=== PATIENT | female | born 1975 | race American Indian/Alaskan Native ===

== ENCOUNTER 2019-12-23 08:59 | Outpatient (CLI) | payer OTHER ==
--- NOTE | 2019-12-24 09:08 | Magnetic Resonance Report ---
Bilateral breast MR without and with contrast. History: Screening breast MRI, patient with strong family history of breast cancer. Comparison: 12/02/2019, 11/27/2018. Technique: Multiplanar multisequence MR images of the breast were obtained before and after the intra venous administration of intravenous contrast. Post processing analysis and review was performed on a separate computer workstation. Findings: Breast composition is heterogenously dense. There is mild background parenchymal enhancement bilatera lly. No enhancing mass, dominant focus, or other abnormal enhancement is identified within either breast. Postsurgical distortion within the right upper outer breast appears stable when compared to prior danika mograms. No abnormal axillary or internal mammary lymph nodes.. Impression: No evidence of breast malignancy. BIRADS 1: Negative. A normal MRI does not exclude the presence of some forms of breast malignancy as literature reports s uggest that some forms of ductal carcinoma in situ or lobular carcinoma, particularly, may not be det ected on MRI. The sensitivity and specificity of MRI for cancers under 5 mm may be reduced. MRI does not replace the recommendation for annual conventional mammographic evaluation and should be used as an adjunct to mammography and physical examination as necessary. Signer Name: Randy Payan MD Signed: 12/24/2019 9:04 AM Workstation Name: [id number]
== END 2019-12-23 09:00 | disposition home or self-care (01) ==
LOC: SPVIMAG 08:59
PROVIDERS: ATTEND Surgery
DX: Z12.31 Encounter for screening mammogram for malignant neoplasm of breast (principal); Z80.3 Family history of malignant neoplasm of breast
CPT/HCPCS: A9577; C8908; 77049

== ENCOUNTER 2020-06-09 07:50 | Outpatient (CLI) | payer OTHER ==
--- NOTE | 2020-06-09 08:31 | Ultrasound Report ---
US soft tissue head and neck INDICATION: Palpable area in the right supraclavicular region. TECHNIQUE: Soft tissue ultrasound in the region of palpable abnormality. COMPARISON: None available. FINDINGS: In the region of palpable abnormality, there is a normal-sized lymph node with normal fatty hilum wit h short axis measurement of 0.5 cm. This is most likely a reactive node. Recommend clinical follow-up to resolution. Signer Name: Jhon Guevara MD Signed: 06/09/2020 8:26 AM Workstation Name: [id number]
== END 2020-06-09 07:51 | disposition home or self-care (01) ==
LOC: SPVWC 07:50
PROVIDERS: ATTEND Surgery
DX: Z03.89 Encounter for observation for other suspected diseases and conditions ruled out (principal); Z80.3 Family history of malignant neoplasm of breast
CPT/HCPCS: 76536

== ENCOUNTER 2020-09-28 08:55 | Outpatient (CLI) | payer OTHER ==
--- NOTE | 2020-09-28 13:45 | Ultrasound Report ---
US Soft Tissue Head and Neck INDICATION / CLINICAL INFORMATION: LOCALIZED SWELLING,MASS LUMP OF NECK. COMPARISON: Soft tissue ultrasound 06/09/2020. FINDINGS: The previously visualized reactive lymph node is not identified on today's exam. No significant abnor mality within the right neck area of concern. IMPRESSION: 1. Previously visualized lymph node is no longer identified. No significant abnormality. Scribed by: Mariaa Elliott RDMS, RVT Scribed: 09/28/2020 10:03 AM I have reviewed the images, agree with this report, and edited this report as needed. Signer Name: Cristino López MD Signed: 09/28/2020 1:41 PM Workstation Name: [id number]
== END 2020-09-28 08:56 | disposition home or self-care (01) ==
LOC: US 08:55
PROVIDERS: ATTEND Surgery
DX: R22.1 Localized swelling, mass and lump, neck (principal)
CPT/HCPCS: 76536

== ENCOUNTER 2020-12-02 08:12 | Outpatient (CLI) | payer OTHER ==
--- NOTE | 2020-12-02 10:22 | Mammography Report ---
DIGITAL SCREENING MAMMOGRAM WITH CAD, 12/02/2020 CLINICAL INFORMATION / INDICATION: Routine screening mammography. SCREENING MAMMO Z12.31 TECHNIQUE: Digital bilateral 2D mammography was obtained in the craniocaudal and mediolateral obliqu e projections. This examination was interpreted with the benefit of Computer-Aided Detection analysis . COMPARISON: 11/17/2016 through 12/02/2019. FINDINGS: Breast Density: The breasts are heterogeneously dense, which may obscure small masses. No dominant mass, suspicious calcifications, or architectural distortion in either breast. Right breast scarring is stable. IMPRESSION: No mammographic evidence of malignancy. Follow up recommendation: Routine yearly BI-RADS Category 2: Benign. A "normal" or negative report should not discourage follow up or biopsy of a clinically significant f inding. A written summary of these findings will be mailed to the patient. The patient will be entered into a mammography reporting system which will generate a reminder letter for the patient's next appointmen t at the appropriate interval. The [employer] recommends yearly mammograms starting at age 40 and continuing as l nicole as a woman is in good health. Breast MRI is recommended for women with an approximate 20-25% or greater lifetime risk of breast cancer, including women with a strong family history of breast or ova gela cancer or who have been treated for Hodgkin's disease. Signer Name: Stewart Sosa MD Signed: 12/02/2020 10:17 AM Workstation Name: [id number]
== END 2020-12-02 08:13 | disposition home or self-care (01) ==
LOC: SPVWC 08:12
PROVIDERS: ATTEND Family Medicine
DX: Z12.31 Encounter for screening mammogram for malignant neoplasm of breast (principal); N64.89 Other specified disorders of breast
CPT/HCPCS: 77067